=== PATIENT | female | born 1955 | race Caucasian/White ===

== ENCOUNTER 2019-07-28 13:00 | Outpatient (CLI) | payer MEDICARE, MEDICAID, SELFPAY ==
--- NOTE | 2019-07-28 13:16 | CT_ITS ---
WS: [id number] CT CHEST TECHNIQUE: Noncontrast CT of the chest with coronal and sagittal reformatted images. CLINICAL INFORMATION: COPD COMPARISON: None. DLP: 970.[address] scans at [facility] use at least one of these dose optimization techniques: automat ed exposure control; mA and/or kV adjustment per patient size (includes targeted exams where dose is matched to clinical indication); or iterative reconstruction. FINDINGS: Mild chronic emphysematous changes. No acute pulmonary infiltrates. Well-circumscribed left lower lob e pulmonary nodule with adjacent atelectasis. Pulmonary nodule measures 13 x 10 mm. Recommend further evaluation with PET/CT. Subsegmental atelectasis in the lingula and left lower lobe. Calcified granu milly right lower lobe. Aortic calcification. Coronary calcification. No mediastinal or hilar lymphadenopathy. Normal endobro nchial tree. Cholecystectomy clips. Tiny esophageal hiatal hernia. Adrenal glands are normal. No axil alayna lymphadenopathy. CT/CT chest wo con [id number] IMPRESSION: 1. Noncalcified pulmonary nodule in the left lower lobe medially measuring 13 x 10 mm. Recommend further evaluation with PET/CT. This is not amenable to CT-g uided biopsy. 2. Mild chronic emphysematous changes. No acute pulmonary infiltrates. 3. No mediastinal or hilar lymphadenopathy. 4. Prior cholecystectomy.
== END 2019-07-28 13:01 | disposition home or self-care (01) ==
LOC: RADWPI 13:05
DX: J43.9 Emphysema, unspecified (principal); R91.1 Solitary pulmonary nodule; Z90.49 Acquired absence of other specified parts of digestive tract
CPT/HCPCS: 71250

== ENCOUNTER → 2020-04-28 11:20 | Outpatient (BNVA) | payer MEDICARE, MEDICAID, SELFPAY | PROVIDERS: Visit Provider Family Medicine Adult Medicine | DX: E03.9 Hypothyroidism, unspecified (principal); E78.5 Hyperlipidemia, unspecified; E66.9 Obesity, unspecified; F32.9 Major depressive disorder, single episode, unspecified; M79.7 Fibromyalgia; M15.9 Polyosteoarthritis, unspecified; G89.4 Chronic pain syndrome | CPT/HCPCS: 80053; 80061; 83036; 84443; 85025 ==

== ENCOUNTER 2020-10-01 08:34 | Outpatient (CLI) | payer MEDICARE, MEDICAID, SELFPAY ==
--- NOTE | 2020-10-01 09:00 | CT_ITS ---
WS: [id number] CT CHEST WITH INTRAVENOUS CONTRAST HISTORY: 08/08/[address] with 13x10 mm nodule TECHNIQUE: Contiguous 5 mm axial imaging performed on the thorax. Coronal and sagittal reformats are submitted. All CT scans at [facility] use at least one of these dose optimization techniq ues: automated exposure control; mA and/or kV adjustment per patient size (includes targeted exams wh ere dose is matched to clinical indication); or iterative reconstruction. CONTRAST: Omnipaque 300; 95 mL IV. DLP: 486.75 mGy-cm. COMPARISON: 07/28/2019 Lungs and central airway: Solid well-circumscribed nodule in the medial LEFT lower lobe has very mini rita increased in size now measuring 15 x 14 mm and extends over length of 15 mm. Prior measurements were 13 x 10 x 13 mm. Benign calcified granuloma posterior RIGHT lower lobe. No new or additional no dules. Chronic emphysema. Pleura: Normal. No pleural effusion. Heart and pericardium: Normal size heart with no pericardial effusion. Mediastinum and jamir: No mediastinum or hilar adenopathy. Vessels: Mild atherosclerosis aorta. Pulmonary artery size is very slightly enlarged. Chest wall and lower neck: Mild enlargement of the inferior RIGHT thyroid extends substernal. Upper abdomen: Prior cholecystectomy. Visualized liver demonstrates moderate hepatic steatosis. No ad renal mass. Normal size spleen. Small hiatal hernia. Osseous structures: No destructive process. CT/CT chest w con* [id number] IMPRESSION: 1. Very slight increase in size of the medial LEFT lower lobe pulmonary nodule since 07/28/2019. Nodule now measures 15 x 14 x 15 mm as compared to 13 x 10 x 1 3 mm. Due to the very minimal change in size this is probably benign. PET CT ev aluation would be helpful. Otherwise continued CT follow-up in 6-12 months is r ecommended. 2. Chronic emphysema. 3. Mild pulmonary hypertension. 4. Hepatic steatosis. 5. Small hiatal hernia. 6. Prior cholecystectomy.
[2020-10-01 09:32] LABS: Blood Urea Nitrogen 18 mg/dL (8-23); Glomerular Filtration Rate 72.2 mL/min (90-130)
[2020-10-01] MEDS: iohexol 300 mg/mL 100 mL Btl IV (09:47)
== END 2020-10-01 08:35 | disposition home or self-care (01) ==
LOC: RADWPI 08:39
PROVIDERS: PCP Family Medicine Adult Medicine; Visit Provider Family Medicine Adult Medicine
DX: R91.1 Solitary pulmonary nodule (principal); Z90.49 Acquired absence of other specified parts of digestive tract; K44.9 Diaphragmatic hernia without obstruction or gangrene; K76.0 Fatty (change of) liver, not elsewhere classified; I27.20 Pulmonary hypertension, unspecified; J43.9 Emphysema, unspecified
CPT/HCPCS: 71260; 82565; 84520; Q9967

== ENCOUNTER 2020-12-07 10:33 | Emergency (ER) | payer MEDICARE, MEDICAID, SELFPAY ==
[2020-12-07 10:52] VITALS: BP 150/94; PULSE 73; RESP 16; TEMP 36.8; O2SAT 97; BMI 35.4
--- NOTE | 2020-12-07 11:00 | ED_ITS ---
HPI - General Adult General: Chief complaint: General Medical Stated complaint: sore on lip Time Seen by Provider: 12/07/20 10:57 History of Present Illness: HPI narrative: Patient is a 65-year-old female comes to the ED with a skin lesion on face. Patient says about a week and a half ago she woke up and lesion was on right side of upper lip. She says it has not changed in size or looks since it first appeared. She says she has been picking at it a little bit and applying hydrogen peroxide on it as well. She says it has not bled or drained any pus. Associated symptoms: Deny chest pain, dyspnea, headache(s), nausea, rash, palpitations or vomiting Review of Systems Const: Denies: fever(s), chills or fatigue Eyes: Denies: change in vision or eye discomfort ENMT: Denies: throat pain, odynophagia, nasal discharge or nasal congestion Card: Denies: chest pain, palpitations, edema, swelling of feet/ankles, dyspnea on exertion or orthopnea Resp: Denies: dyspnea, productive cough or non-productive cough GI: Denies: abdominal pain, nausea, vomiting, diarrhea, constipation or hematochezia : Denies: flank pain, dysuria or hematuria Musc: Denies: neck pain, back pain or extremity swelling Skin/Breast: Reports: new lesions (Skin lesion on face); Denies: rash Neuro: Denies: headache(s), numbness in extremities or weakness in extremities PFSH ED PFSH: Medical History Chronic pain disorder COPD (chronic obstructive pulmonary disease) Decreased calculated glomerular filtration rate (GFR) Depression determined by examination Dyslipidemia Excessive daytime sleepiness Fibromyalgia GERD with apnea Hypothyroidism Lung nodule < 6cm on CT Migraine Obesity (BMI 35.0-39.9 without comorbidity) Osteoarthritis involving multiple joints on both sides of body Surgical History History of cholecystectomy History of tonsillectomy and adenoidectomy Family History Other CAD (coronary artery disease) Social History Smoking and tobacco status: current every day smoker cigarettes Packs smoked per day: 1 Physical Exam Const: COMMON NORMALS: no acute distress, patient oriented x3 and alert GENERAL APPEARANCE: cooperative and comfortable HENMT: COMMON NORMALS: normocephalic HEAD & SCALP: normocephalic MOUTH: Normal oral and palatal mucosa present THROAT: posterior oropharynx normal and uvula midline Neck/C-Spine: COMMON NORMALS: supple GENERAL: Yes normal visual inspection Resp: COMMON NORMALS: normal respiratory effort, No retractions, No use of accessory muscles and clear to auscultation bilaterally AUSCULTATION: clear to auscultation bilaterally Cardio: COMMON NORMALS: regular rate, regular rhythm, S1 normal heart sound present, S2 normal heart sound present, No gallops present (Cardio), No clicks present (Cardio), No murmurs present (Cardio) and Peripheral pulses 2+ throughout RATE: regular rate RHYTHM: regular rhythm HEART SOUNDS: S1 normal heart sound present and S2 normal heart sound present PERIPHERAL PULSES: Peripheral pulses 2+ throughout GI: COMMON NORMALS: Normal to inspection, nondistended, normoactive bowel sounds present, Soft to palpation, non-tender and no masses PALPATION: Yes Soft to palpation : COMMON NORMALS: Yes no CVA tenderness BLADDER/KIDNEY EXAM: Yes no CVA tenderness Back/Pelvis: COMMON NORMALS: no CVA tenderness Neuro: COMMON NORMALS: patient oriented x3 and moves all extremities SENSORIUM/ORIENTATION: Yes alert Skin: NARRATIVE SKIN EXAM: Face?right side of upper lip just inferior to right nare, patient has a circular raised lesion with rolled borders. The lesion has erythema and crusty appearance in the center. GENERAL SKIN EXAM: dry skin Course Vital Signs: Vital signs: Vital Signs Temperature 98.2 F 12/07/20 10:52 Pulse Rate 73 12/07/20 10:52 Respiratory Rate 16 12/07/20 10:52 Blood Pressure 150/94 12/07/20 10:52 Pulse Oximetry 97 12/07/20 10:52 MDM - General Adult MDM Narrative: Medical decision making narrative: pt has a lesion on face that is raised erythemic an circular with rolled borders. The middle of lesion has crusty appearance. I placed an order with case management for pt to be referred to animal humane agent supervisor for further eval of facial lesion. pt understood and agreed with plan. Discharge Plan Discharge Patient Disposition: Home Clinical Impression: Skin lesion Condition: Stable Prescriptions: New cephalexin 500 mg capsule 500 mg PO Q6H 7 Days Qty: 28 RF: 0 No Action sumatriptan succinate 25 mg tablet 25 mg PO Q2H MDD 8 doses PRN (Reason: migraine headache) 30 Days Qty: 14 RF: 1 cyclobenzaprine 10 mg tablet See Rx Instructions .ROUTE .COMPLEX Qty: 60 RF: 0 albuterol sulfate [Ventolin HFA] 90 mcg/actuation HFA aerosol inhaler 2 puff inhalation Q6H PRN (Reason: shortness of breath or wheezing) Qty: 8.5 RF: 3 bupropion HCl 150 mg tablet sustained-release 12 hr 150 mg PO BID Qty: 60 RF: 2 meloxicam 7.5 mg tablet 7.5 mg PO DAILY 30 Days Qty: 30 RF: 1 pantoprazole 40 mg tablet,delayed release (DR/EC) 40 mg PO DAILY Qty: 30 RF: 5 Discharge Orders: Discharge ED (Routine); Ordered 12/07/20 Ordered By: Paul Tovar Referrals: Israel Carter MD [Primary Care Provider] - Discharge Diet: Regular Discharge Activity: Resume usual activity Activity Restrictions/Additional Instructions: Follow-up with medical provider as directed. Case management should be contacting you in the next several days to set up an appoint with animal humane agent supervisor to further evaluate skin lesion on face. Take medications as prescribed. Return to the ER or your medical provider if condition worsens. Please read and understand discharge instructions. Thank you for choosing [facility] for your healthcare needs today. Please realize this is an emergency room and that we are providing you with a medical screening exam and this may not be complete and all inclusive of all the testing and or work up that you may need to determine your ailment or severity of your illness. It is very important that you follow up as instructed or that you return to the Emergency Department should you have concerns or if your condition changes or worsens in any way. Coding Level of Care Code ED Certified Nurse Operating Room for Bogdan Meredith Exam Comprehensive
--- NOTE | 2020-12-07 14:17 | DCPLANNER ---
digital project manager had message to schedule a follow up appointment for patient with dermatology for skin lesion. digital project manager called the dermatology clinic, spoke with Macie, gave clinic patients information. A follow up appointment is scheduled for Sunday, January 17, 2021 at 1:[address] Clrak. digital project manager called patient at phone number [phone], this number has been disconnected or is no longer in service. digital project manager mailed letter to patient with appointment information.
--- NOTE | 2021-01-19 12:24 | DCPLANNER ---
Patient had a follow up appointment scheduled for 01.17.[address] Clark - patient did attend appointment.
== END 2020-12-07 12:10 | disposition home or self-care (01) ==
LOC: ER 11:28
PROVIDERS: Emergency Provider Physician Assistant; PCP Family Medicine Adult Medicine
DX: L98.9 Disorder of the skin and subcutaneous tissue, unspecified (principal); J44.9 Chronic obstructive pulmonary disease, unspecified; E78.5 Hyperlipidemia, unspecified; E03.9 Hypothyroidism, unspecified; E66.9 Obesity, unspecified; Z68.35 Body mass index [BMI] 35.0-35.9, adult; F17.210 Nicotine dependence, cigarettes, uncomplicated
CPT/HCPCS: 99281

== ENCOUNTER → 2021-05-09 14:51 | Outpatient (BNVA) | payer MEDICARE, MEDICAID, SELFPAY | PROVIDERS: PCP Family Medicine Adult Medicine; Visit Provider Family Medicine Adult Medicine | DX: E03.9 Hypothyroidism, unspecified (principal); I10 Essential (primary) hypertension; R73.03 Prediabetes; J44.9 Chronic obstructive pulmonary disease, unspecified; G47.33 Obstructive sleep apnea (adult) (pediatric) | CPT/HCPCS: 80053; 83036; 84443; 85025 ==

== ENCOUNTER → 2021-09-29 09:30 | Outpatient (BNVA) | payer MEDICARE, MEDICAID, SELFPAY | PROVIDERS: PCP Family Medicine Adult Medicine; Visit Provider Family Medicine Adult Medicine | DX: E11.9 Type 2 diabetes mellitus without complications (principal); E66.9 Obesity, unspecified; I10 Essential (primary) hypertension; E03.9 Hypothyroidism, unspecified; R91.1 Solitary pulmonary nodule; M54.16 Radiculopathy, lumbar region; Z71.6 Tobacco abuse counseling; M79.7 Fibromyalgia; G89.4 Chronic pain syndrome; M54.9 Dorsalgia, unspecified | CPT/HCPCS: 80053; 83036; 84443 ==

== ENCOUNTER 2021-11-04 06:00 | Outpatient (RCR) | payer OTHER, MEDICAID, SELFPAY | END 2021-11-17 23:59 | disposition home or self-care (01) | LOC: SPT 06:00 | PROVIDERS: PCP Family Medicine Adult Medicine; Referring Provider Family Medicine Adult Medicine; Visit Provider Family Medicine Adult Medicine | DX: M54.16 Radiculopathy, lumbar region (principal) | CPT/HCPCS: 97161 ==

== ENCOUNTER 2021-12-02 11:16 | Emergency (ER) | payer MEDICARE, MEDICAID, SELFPAY ==
[2021-12-02 11:34] VITALS: BP 137/67; PULSE 82; RESP 16; TEMP 36.8; O2SAT 97
--- NOTE | 2021-12-02 12:43 | ED_ITS ---
HPI - General Adult General: Chief complaint: General Medical Stated complaint: lethargic Time Seen by Provider: 12/02/21 12:43 History of Present Illness: Ms. Garduno is a 66-year-old lady with history of hypertension, hyperlipidemia, COPD, BRY, CKD, diabetes who presents to the emergency department due to recurrent episodes of loss of consciousness. She reports onset of symptoms without specific known provoking factor approximately 3 months ago. Since that time she has had increasing frequency of what she describes falling asleep. These now occur 30-40 times per day at random times including 1 episode [address] that occurred yesterday. She denies preceding symptoms and simply loses consciousness. She does have a history of snoring however no pauses in respiration overnight, does not use CPAP. Denies associated chest pain or other systemic illness. 3 days ago she did start noticing a floater that moves around in the left eye. Overall course of symptoms has been worsening. No other specific changes in health, exacerbating, or alleviating factors identified. Onset (ago): month(s) Severity: moderate Review of Systems General: Reports: 10 or more systems reviewed and unremarkable except in HPI and below PFSH ED PFSH: Medical History Allergic rhinitis due to allergen Anxiety and depression Chronic pain disorder CKD (chronic kidney disease), stage II 05/09/2021 GFR 72 now x3 so new diagnosis CKD stage II COPD (chronic obstructive pulmonary disease) Depression determined by examination Dyslipidemia Encounter for smoking cessation counseling Excessive daytime sleepiness Fibromyalgia GERD with apnea Hypertension Diagnosed 05/09/2021 Started lisinopril 10 mg daily Hypothyroidism 05/09/2021 TSH 4.9 starting levothyroxine 25 daily Lumbar back pain with radiculopathy affecting left lower extremity Lung nodule < 6cm on CT Migraine Newly diagnosed diabetes 05/09/2021 hemoglobin A1c 7.1 starting Metformin 250 twice daily Obesity (BMI 35.0-39.9 without comorbidity) BRY and COPD overlap syndrome Osteoarthritis involving multiple joints on both sides of body Prediabetes Surgical History History of cholecystectomy History of tonsillectomy and adenoidectomy Family History Other CAD (coronary artery disease) Social History Smoking and tobacco status: current every day smoker cigarettes Packs smoked per day: 1 Alcohol intake: never Marital status: Current occupational status: disabled History of recent travel: No Physical Exam Const: COMMON NORMALS: patient oriented x3 and alert GENERAL APPEARANCE: cooperative and well developed HENMT: COMMON NORMALS: normocephalic and atraumatic HEAD & SCALP: normocephalic and atraumatic THROAT: posterior oropharynx normal Eye: COMMON NORMALS: conjunctivae normal CONJUNCTIVA: Yes conjunctivae normal SCLERA: sclerae normal Neck/C-Spine: COMMON NORMALS: supple GENERAL: Yes trachea midline Resp: COMMON NORMALS: normal respiratory effort and clear to auscultation bilaterally EFFORT & INSPECTION: Yes able to speak in complete sentences AUSCULTATION: clear to auscultation bilaterally Cardio: COMMON NORMALS: regular rate and regular rhythm RATE: regular rate RHYTHM: regular rhythm GI: COMMON NORMALS: Soft to palpation PALPATION: Yes Soft to palpation and No Tenderness to palpation present (GI) PERCUSSION: normal to percussion Extremity: GENERAL: Yes normal exam except as noted and No edema Neuro: COMMON NORMALS: patient oriented x3, CN's II-XII intact bilaterally, mo ves all extremities, no focal motor deficits and no sensory deficits noted SENSORIUM/ORIENTATION: Yes alert and No Orientation impaired Psych: COMMON NORMALS: mental status grossly normal and Normal thought process present THOUGHT PROCESS: Normal thought process present Course ED course: - Patient was seen and evaluated by me at bedside - Patient placed on cardiac monitors, IV access obtained - Initial evaluation notable for exam as above. No focal neurologic abnormity's appreciated. - Labs and xrays personally interpreted by me. EKG with nonspecific ST segment abnormalities. No STEMI. - Labs notable for no acute hematologic or metabolic abnormality to explain symptoms. Delta troponin is negative. No evidence of UTI. - Imaging notable for no lobar consolidation or pneumothorax. Lungs appear hyperinflated. Head CT negative. - Upon serial reexamination after treatment the patient was similar without recurrence episodes - Based on patient history, evaluation, and testing as interpreted the most likely cause of the patient's condition is recurrent syncope of unclear etiology. Given frequency and severity patient requires further inpatient investigation to - The results of ED evaluation were discussed with the patient including plan for admission due to requirement for level of care not available if discharged to prevent significant worsening/deterioration. - Admitting service was contacted and Dr Cleveland with the hospitalist service agreed to admit the patient - Unfortunately the patient elected to leave AGAINST MEDICAL ADVICE prior to admission. Patient declined to remain in the emergency department to receive further instructions for after further discussion. Note: Click bubbles or prepopulated yip in note writing are used for assistance with data collection and billing and are inherently more limited than narrative and other text portions of this note. Please use narrative for additional clinical history and defer to narrative/free test for any case of contradictory information. If information appears in only free text or click bubble it should be considered present or absent as reported. Please contact note director underwriter sales for clarifications of clinical information or contradictory information. MDM is a brief summary, contradictory or erroneous seeming information should be clarified and full note should be reviewed. Vital Signs: Vital signs: Vital Signs Temperature 98.2 F 12/02/21 11:34 Pulse Rate 82 12/02/21 11:34 Respiratory Rate 16 12/02/21 11:34 Blood Pressure 137/67 12/02/21 11:34 Pulse Oximetry 97 12/02/21 11:34 MDM - General Adult Medical Decision Making 66-year-old lady presenting with recurrent episodes of syncope without prodrome . No focal neurodeficits on exam. No clear explanation of patient's symptoms identified on ED evaluation. Patient initially agreeable to be admitted however subsequently left against medical advice without further discussion. Based on my assessment and interactions with patient she has capacity to make healthcare decisions however ill-advised. Medical Records I reviewed the patient's medical records. Lab Data I reviewed the patient's lab results. : 12/02/21 13:18 12/02/21 13:18 Radiology Impressions Chest X-Ray 12/02/21 13:06 Impression: Atherosclerosis and hyperinflation. Head CT 12/02/21 13:06 IMPRESSION: Negative head CT. Laboratory Results WBC 7.5 10^3/uL (4.0-10.0) 12/02/21 13:18 RBC 4.63 10^6/uL (4.1-5.3) 12/02/21 13:18 Hgb 14.0 g/dL (11.5-15.3) 12/02/21 13:18 Hct 41.9 % (37.0-47.0) 12/02/21 13:18 MCV 90.5 fl (81-99) 12/02/21 13:18 MCH 30.2 pg (28.0-34.0) 12/02/21 13:18 MCHC 33.4 g/dL (30.0-36.0) 12/02/21 13:18 RDW 12.6 % (12.1-15.1) 12/02/21 13:18 Plt Count 275 10^3/cmm (130-400) 12/02/21 13:18 MPV 9.1 fL (7.4-10.4) 12/02/21 13:18 Neut % (Auto) 54.5 % 12/02/21 13:18 Lymph % (Auto) 30.9 % 12/02/21 13:18 [place] % (Auto) 8.7 % 12/02/21 13:18 Eos % (Auto) 4.9 % 12/02/21 13:18 Baso % (Auto) 0.3 % 12/02/21 13:18 Neut # (Auto) 4.09 10^3/uL (1.8-7.7) 12/02/21 13:18 Lymph # (Auto) 2.3 10^3/uL (0.8-4.8) 12/02/21 13:18 [place] # (Auto) 0.7 10^3/uL (0.2-0.9) 12/02/21 13:18 Eos # (Auto) 0.4 10^3/uL (0.0-0.8) 12/02/21 13:18 Baso # (Auto) 0.0 10^3/uL (0.0-0.1) 12/02/21 13:18 Nucleated RBC % (auto) 0 % 12/02/21 13:18 Nucleated RBCs # 0.0 /100WBC 12/02/21 13:18 Specimen Type Arterial 12/02/21 13:37 Sample Site Radial, right 12/02/21 13:37 ABG pH 7.38 (7.35-7.45) 12/02/21 13:37 ABG pCO2 45.0 mmHg (35-45) 12/02/21 13:37 ABG pO2 71.7 mmHg (80.0-100.0) L 12/02/21 13:37 ABG HCO3 26.6 mmol/L (22-26) H 12/02/21 13:37 ABG Base Excess 1.0 mmol/L (-2.0-2.0) 12/02/21 13:37 [place] Test Pos 12/02/21 13:37 Hematocrit 43.2 % (37-47) 12/02/21 13:37 O2 Delivery Device Room air 12/02/21 13:37 Heel Coverer Machine Operator ID Carlos 12/02/21 13:37 Sodium 135 mmol/L (136-145) L 12/02/21 13:18 Potassium 4.4 mmol/L (3.5-5.1) 12/02/21 13:18 Chloride 100 mmol/L (98-107) 12/02/21 13:18 Carbon Dioxide 27 mmol/L (22-29) 12/02/21 13:18 Anion Gap 12.4 (5-19) 12/02/21 13:18 BUN 21 mg/dL (8-23) 12/02/21 13:18 Creatinine 0.8 mg/dL (0.5-0.9) 12/02/21 13:18 GFR Calculation 72.0 mL/min (90-130) L 12/02/21 13:18 Glucose 116 mg/dL (65-115) H 12/02/21 13:18 Calculated Osmolality 284 mOsm/kg (285-295) L 12/02/21 13:18 Calcium 8.8 mg/dL (8.5-10.5) 12/02/21 13:18 Total Bilirubin 0.2 mg/dL (0.15-1.2) 12/02/21 13:18 AST 21 U/L (0-32) 12/02/21 13:18 ALT 32 U/L (0-33) 12/02/21 13:18 Alkaline Phosphatase 145 IU/L (35-105) H 12/02/21 13:18 Ammonia 22 umol/L (11-51) 12/02/21 13:18 Troponin T Baseline 12 ng/L (0-10) H 12/02/21 13:18 Troponin T 120 Minute 11.55 ng/L (0-10) H 12/02/21 15:17 Delta Troponin T -0.45 ABS# (0-10) L 12/02/21 15:17 Total Protein 6.5 g/dL (6.6-8.7) L 12/02/21 13:18 Albumin 3.9 g/dL (3.5-5.2) 12/02/21 13:18 Globulin 2.6 g/dL (1.3-4.6) 12/02/21 13:18 TSH 2.48 uIU/mL (0.27-4.20) 12/02/21 13:18 Urine Color Yellow (Yellow) 12/02/21 15:00 Urine Appearance Clear (CLEAR) 12/02/21 15:00 Urine pH 5 (5-7) 12/02/21 15:00 Ur Specific [place] 1.020 (1.005-1.030) 12/02/21 15:00 Urine Protein Neg (Negative) 12/02/21 15:00 Urine Glucose (UA) Norm (Normal) 12/02/21 15:00 Urine Ketones Negative (Negative) 12/02/21 15:00 Urine Blood Neg (Negative) 12/02/21 15:00 Urine Nitrate Negative (Negative) 12/02/21 15:00 Urine Bilirubin Neg (Negative) 12/02/21 15:00 Urine Urobilinogen Norm mg/dL (Negative) 12/02/21 15:00 Ur Leukocyte Esterase Negative (Negative) 12/02/21 15:00 Discharge Plan Discharge Patient Disposition: Left Against Medical Advice Clinical Impression: Recurrent syncope Condition: Stable Prescriptions: No Action fluticasone propionate 50 mcg/actuation spray,suspension 1 spray intranasal BID Qty: 16 2RF Rx Instructions: administer into each nostril loratadine 10 mg tablet 10 mg PO DAILY Qty: 30 1RF pantoprazole 40 mg tablet,delayed release (DR/EC) 40 mg PO DAILY Qty: 30 5RF sumatriptan succinate 25 mg tablet 25 mg PO Q2H MDD 8 doses PRN (Reason: migraine headache) 30 Days Qty: 14 0RF Rx Instructions: do not exceed 8 doses per 24 hrs albuterol sulfate [Ventolin HFA] 90 mcg/actuation HFA aerosol inhaler 2 puff inhalation Q6H PRN (Reason: shortness of breath or wheezing) Qty: 8.5 3RF cyclobenzaprine 10 mg tablet 10 mg PO Q8H PRN (Reason: muscle spasm) 30 Days Qty: 90 3RF metformin 500 mg tablet 250 mg PO BID 0RF levothyroxine 25 mcg tablet 25 mcg PO DAILY 0RF Rx Instructions: TAKE 1 TABLET BY MOUTH DAILY FOR LOW THYROID FUNCTION meloxicam 7.5 mg tablet 7.5 mg PO DAILY 0RF lisinopril 10 mg tablet 10 mg PO DAILY 0RF bupropion HCl 150 mg tablet sustained-release 12 hr 150 mg PO BID 0RF Referrals: Israel Carter MD [Primary Care Provider] - Coding Level of Care Code ED Stallion Keeper for Chg Fwd Exam Comprehensive
--- NOTE | 2021-12-02 13:06 | ECG_ITS ---
[facility] Test Date: 2021-12-02 Pat Name: Mara Garduno Department: Room: Gender: Female Pull Up Hand: : 1955 Requested By: Willie Pruett Order Number: [id number] Eleno MD: Keyshawn Simon M.D. Measurements Intervals [place] Rate: 68 P: 58 FL: 183 QRS: 53 QRSD: 86 T: 60 QT: 397 QTc: 424 Interpretive Statements SINUS RHYTHM Compared to ECG 08/08/2015 18:19:47 No significant changes Electronically Signed On 12-02-2021 17:13:28 CDT by Keyshawn Simon M.D. [id number]
--- NOTE | 2021-12-02 13:06 | CT_ITS ---
WS: [id number] CT HEAD NONCONTRAST HISTORY: AMS, visual changes TECHNIQUE: Contiguous axial imaging performed through the brain in 2.5 mm imaging. Bone and soft tiss ue windows. Sagittal and coronal reformats reviewed. All CT scans at [facility] use at least one of these dose optimization techniques: automated exposure control; mA and/or kV adjustment per pa tient size (includes targeted exams where dose is matched to clinical indication); or iterative recon struction. DLP: 1033.68 mGy.cm COMPARISON: None available. No acute intracranial hemorrhage, midline shift or mass effect. No atrophy or prior infarcts or herniation. Ventricles: Normal size with no hydrocephalus. Paranasal sinuses: As visualized are clear. Mastoid air cells: Well pneumatized. Calvarium and scalp: Skull is intact with no soft tissue edema or swelling. CT/CT head wo con* [id number] IMPRESSION: Negative head CT.
--- NOTE | 2021-12-02 13:06 | XR_ITS ---
WS: [id number] Portable AP upright chest, 12/02/2021 Clinical Data: recurrent LOC Comparison: Portable chest, 08/08/2015. Findings: No nodules, masses or effusions are seen. The heart is normal. The pulmonary vascularity is not increased. No pneumonia or pneumothorax is seen. The diaphragms are flattened. The aortic arch s hows tortuosity. XR/XR chest 1V portable [id number] Impression: Atherosclerosis and hyperinflation.
[2021-12-02 13:24] LABS: Basophils % 0.3 %; Eosinophils # 0.4 10^3/uL (0.0-0.8); Eosinophils % 4.9 %; Hematocrit 41.9 % (37.0-47.0); Lymphocytes # 2.3 10^3/uL (0.8-4.8); Lymphocytes % 30.9 %; Mean Corpuscular HGB Conc 33.4 g/dL (30.0-36.0); Mean Corpuscular Hemoglobin 30.2 pg (28.0-34.0); Mean Corpuscular Volume 90.5 fl (81-99); Mean Platelet Volume 9.1 fL (7.4-10.4); Monocytes # 0.7 10^3/uL (0.2-0.9); Monocytes % 8.7 %; Neutrophils # 4.09 10^3/uL (1.8-7.7); Neutrophils % 54.5 %; Nucleated Red Blood Cells % 0 %; Platelet Count 275 10^3/cmm (130-400); Red Blood Count 4.63 10^6/uL (4.1-5.3); Red Cell Distribution Width 12.6 % (12.1-15.1); White Blood Count 7.5 10^3/uL (4.0-10.0)
[2021-12-02 13:41] LABS: ABG PH Result 7.38 (7.35-7.45); Arterial Blood Gas Hematocrit 43.2 % (37-47); Blood Gas Allen Test Pos; Blood Gas Sample Site Radial, right; Blood Gas Sample Type Arterial; HCO3 ABG 26.6 mmol/L (22-26); Oxygen Device ROOM AIR; PO2 ABG 71.7 mmHg (80.0-100.0)
[2021-12-02 13:44] LABS: Ammonia 22 umol/L (11-51)
[2021-12-02 13:48] LABS: Troponin(5th) Baseline 12 ng/L (0-10)
[2021-12-02 13:54] LABS: Alanine Aminotransferase 32 U/L (0-33); Albumin Level 3.9 g/dL (3.5-5.2); Alkaline Phosphatase 145 IU/L (35-105); Anion Gap 12.4 (5-19); Aspartate Amino Transferase 21 U/L (0-32); Blood Urea Nitrogen 21 mg/dL (8-23); Calcium 8.8 mg/dL (8.5-10.5); Carbon Dioxide 27 mmol/L (22-29); Chloride 100 mmol/L (98-107); Globulin 2.6 g/dL (1.3-4.6); Glucose 116 mg/dL (65-115); Osmolality Calculated 284 mOsm/kg (285-295); Potassium 4.4 mmol/L (3.5-5.1); Sodium 135 mmol/L (136-145); Thyroid Stimulating Hormone 2.48 uIU/mL (0.27-4.20); Total Bilirubin 0.2 mg/dL (0.15-1.2); Total Protein 6.5 g/dL (6.6-8.7)
--- NOTE | 2021-12-02 15:06 | ECG_ITS ---
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 Measurements Intervals Vandiver Rate: 72 P: 60 AL: 172 QRS: 47 QRSD: 90 T: 40 QT: 390 QTc: 428 Interpretive Statements SINUS RHYTHM WITH SINUS ARRHYTHMIA Compared to ECG 12/02/2021 13:44:21 No significant changes Electronically Signed On 12-02-2021 17:20:01 CDT by Keyshawn Simon M.D. [email or web address] medical [id number]
[2021-12-02 15:10] LABS: Add Urine Microscopic? NO; Charge for UA Resulting for Rev
[2021-12-02 15:11] LABS: Urine Appearance Clear (CLEAR); Urine Color Yellow (Yellow); pH Urine 5 (5-7)
[2021-12-02 15:12] LABS: Bilirubin Urine Neg (Negative); Blood Urine Neg (Negative); Glucose Urine UA Norm (Normal); Ketones Urine Negative (Negative); Leukocyte Esterase Urine Negative (Negative); Nitrate Urine Negative (Negative); Protein Urine Neg (Negative); Urobilinogen Urine Norm (Negative)
[2021-12-02 16:03] LABS: Troponin 5 2HR 11.55 ng/L (0-10)
[2021-12-02 16:04] LABS: Troponin 5 2HR Delta -0.45 ABS# (0-10)
--- NOTE | 2021-12-02 19:01 | PM.HP ---
Providers/Chief Complaint Primary Care Provider: Israel Carter MD Chief Complaint: lethargic History of Present Illness Mara Garduno is a 66 year old female Medications/Allergies Home Medications Medication Instructions Recorded Confirmed Last Taken Type albuterol sulfate 90 mcg/actuation 2 puff INHALATION Q6H PRN #8.5 g 08/17/21 12/02/21 Unknown Rx aerosol inhaler (Ventolin HFA) pantoprazole 40 mg tablet,delayed 40 mg PO DAILY #30 tab 08/17/21 12/02/21 12/01/21 Rx release sumatriptan succinate 25 mg tablet 25 mg PO Q2H PRN 30 Days #14 tab 08/17/21 12/02/21 Unknown Rx MDD 8 doses fluticasone propionate 50 1 spray INTRANASAL BID #16 g 10/28/21 12/02/21 Unknown Rx mcg/actuation nasal spray,suspension loratadine 10 mg tablet 10 mg PO DAILY #30 tab 10/28/21 12/02/21 12/01/21 Rx cyclobenzaprine 10 mg tablet 10 mg PO Q8H PRN 30 Days #90 tab 11/17/21 12/02/21 Unknown Rx bupropion HCl 150 mg tablet,12 hr 150 mg PO BID 12/02/21 12/02/21 12/01/21 History sustained-release levothyroxine 25 mcg tablet 25 mcg PO DAILY 12/02/21 12/02/21 12/01/21 History lisinopril 10 mg tablet 10 mg PO DAILY 12/02/21 12/02/21 12/01/21 History meloxicam 7.5 mg tablet 7.5 mg PO DAILY 12/02/21 12/02/21 12/01/21 History metformin 500 mg tablet 250 mg PO BID 12/02/21 12/02/21 12/01/21 History Allergies Allergy/AdvReac Type Severity Reaction Status Date / Time No Known Allergies Allergy Verified 10/28/21 07:33 PFSH Acute PFSH: Medical History Allergic rhinitis due to allergen Anxiety and depression Chronic pain disorder CKD (chronic kidney disease), stage II 05/09/2021 GFR 72 now x3 so new diagnosis CKD stage II COPD (chronic obstructive pulmonary disease) Depression determined by examination Dyslipidemia Encounter for smoking cessation counseling Excessive daytime sleepiness Fibromyalgia GERD with apnea Hypertension Diagnosed 05/09/2021 Started lisinopril 10 mg daily Hypothyroidism 05/09/2021 TSH 4.9 starting levothyroxine 25 daily Lumbar back pain with radiculopathy affecting left lower extremity Lung nodule < 6cm on CT Migraine Newly diagnosed diabetes 05/09/2021 hemoglobin A1c 7.1 starting Metformin 250 twice daily Obesity (BMI 35.0-39.9 without comorbidity) BRY and COPD overlap syndrome Osteoarthritis involving multiple joints on both sides of body Prediabetes Surgical History History of cholecystectomy History of tonsillectomy and adenoidectomy Family History Other CAD (coronary artery disease) Social History Smoking and tobacco status: current every day smoker cigarettes Packs smoked per day: 1 Alcohol intake: never Marital status: Current occupational status: disabled History of recent travel: No Vitals/I&O/Wt Last Vital Signs Temp 98.2 F 12/02/21 11:34 Pulse 82 12/02/21 11:34 Resp 16 12/02/21 11:34 BP 137/67 12/02/21 11:34 Pulse Ox 97 12/02/21 11:34 Weight last 48 hrs Weight 96.162 kg Data : 12/02/21 13:18 12/02/21 13:18 A&P Assessment and plan Plan Pre syncope Check echo CTA head and neck b12 tsh orthostatsis Physical theraphy eval Full code cardiac diet dvt ppx: lovenox Attestations Medical Necessity Statement*: Dc with in 48 hrs needs workup for pre syncope Time Spent in Patient Care: 35mins Coding Level of Care Code Acute Child Care Counselor for Chg Viri
== END 2021-12-02 17:45 | disposition left against medical advice (07) ==
PROVIDERS: Emergency Provider Emergency Medicine; PCP Family Medicine Adult Medicine
DX: R55 Syncope and collapse (principal); Z53.21 Procedure and treatment not carried out due to patient leaving prior to being seen by health care provider; Z79.84 Long term (current) use of oral hypoglycemic drugs; I12.9 Hypertensive chronic kidney disease with stage 1 through stage 4 chronic kidney disease, or unspecified chronic kidney disease; E11.22 Type 2 diabetes mellitus with diabetic chronic kidney disease; N18.2 Chronic kidney disease, stage 2 (mild); J44.9 Chronic obstructive pulmonary disease, unspecified; E78.5 Hyperlipidemia, unspecified; F17.210 Nicotine dependence, cigarettes, uncomplicated
CPT/HCPCS: 36415; 36600; 70450; 71045; 80053; 81003; 82140; 82803; 84443; 84484; 85025; 93005; 99285

== ENCOUNTER → 2022-04-26 13:12 | Outpatient (BNVA) | payer MEDICARE, MEDICAID, SELFPAY | PROVIDERS: PCP Family Medicine Adult Medicine; Visit Provider Internal Medicine | DX: Z01.818 Encounter for other preprocedural examination (principal); R07.9 Chest pain, unspecified; R06.02 Shortness of breath; I10 Essential (primary) hypertension; F17.200 Nicotine dependence, unspecified, uncomplicated | CPT/HCPCS: 93005; 99204 ==

== ENCOUNTER 2022-05-22 13:27 | Outpatient (CLI) | payer MEDICARE, MEDICAID, SELFPAY ==
--- NOTE | 2022-05-22 13:45 | USCV_ITS ---
Mara Garduno Age: 67 Gender: F : 1955 Exam Date: 05/22/2022 13:57 Ordering Phys: Fox Hall M.D ([email or web address]) Technologist: YUKI Exam Location[place] [facility] [place] Indication: SHORTNESS OF BREATH BP: 128 / 84 HR: 81 Rhythm: Sinus Technical Quality: Poor secondary to COPD MEASUREMENTS (Male / Female) Normal Values 2D ECHO LVOT Diameter 2.0 cm LV Ejection Fraction MOD 2C 66.7 % LV Ejection Fraction 2C AL 69.3 % LA Diameter 2.6 cm LA Width 2.9 cm LA Height 3.9 cm RA Width 3.5 cm RA Height 4.1 cm Aorta at Sinotubular Diameter 2.9 cm IVC Diameter 1.4 cm M-MODE Aortic Annulus Diameter 3.1 cm LA Ao Ratio MM 0.8 MV E Point Septal Separation 0.5 cm DOPPLER AV Peak Velocity 166.0 cm/s LVOT Peak Velocity 161.0 cm/s AV Area Cont Eq vti 3.5 cm squared AV Area Cont Eq pk 3.1 cm squared MV Peak Velocity 111.0 cm/s MV Area PHT 3.5 cm squared Mitral E to A Ratio 0.7 MV E' Velocity 44.5 cm/s Mitral E to MV E' Ratio 11.6 Mitral E to LV E' Lateral Ratio 12.3 Mitral E to LV E' Septal Ratio 11.1 TR Peak Velocity 243.8 cm/s TR Peak Gradient 23.8 mmHg TR Mean Velocity 219.2 cm/s TR Mean Gradient 19.5 mmHg TR Velocity Time Integral 78.5 cm TV Peak E Velocity 56.0 cm/s Right Atrial Pressure 3.0 mmHg Pulmonary Artery Systolic Pressu 26.8 mmHg PV Peak Velocity 101.0 cm/s RV Acceleration Time 0.1 s RV Ejection Time 0.3 s RV AcT/ET 0.5 FINDINGS Left Ventricle Technically limited quality echocardiogram because of poor ultrasonic windows. LV systolic function is normal with EF of 60-65%. No regional wall motion abnormalities are seen. Grade 1 diastolic dysfunction Right Ventricle Normal in size and function Right Atrium Normal in size Left Atrium Normal in size Mitral Valve Grossly normal. Mild mitral regurgitation. Aortic Valve Grossly normal. No significant stenosis or regurgitation seen. Tricuspid Valve Trace tricuspid regurgitation. Insufficient TR jet to calculate RVSP Pulmonic Valve Not well-visualized Pericardium Normal Aorta Normal in size IVC Appears to be normal CONCLUSIONS Technically limited quality echocardiogram because of poor ultrasonic windows. LV systolic function is normal with EF of 60 to 65%. Grade 1 diastolic dysfunction. Mild mitral regurgitation Trace tricuspid regurgitation. Compared to prior echocardiogram from 2018, no significant changes are seen Fox Hall MD (Electronically Signed) Final Date: 24 May 2022 11:33 S
== END 2022-05-22 13:28 | disposition home or self-care (01) ==
LOC: RAD 13:30
PROVIDERS: PCP Family Medicine Adult Medicine; Visit Provider Internal Medicine
DX: R06.02 Shortness of breath (principal); I08.1 Rheumatic disorders of both mitral and tricuspid valves
CPT/HCPCS: 93306

== ENCOUNTER 2022-06-09 08:37 | Outpatient (CLI) | payer MEDICARE, MEDICAID, SELFPAY ==
[2022-06-09 09:10] VITALS: BMI 37.2
--- NOTE | 2022-06-09 09:30 | NMCV_ITS ---
NM rommel perf SPECT r/s* [id number] Mara Garduno Age: 67 Gender: F : 1955 Exam Date: 06/09/2022 09:50 Ordering Phys: Fox Hall M.D ([email or web address]) Technologist: CHAYA Perez Exam Location: [facility] Indications: CHEST PAIN STRESS TEST [facility] IMAGE PROTOCOL Rest/Stress 1 Lexiscan Day Radiopharmaceutical Dose (mCi) Administration Site Administered by Rest: Tc-99m 10.6 IV CHAYA Timmons Sestamibi Stress:Tc-99m 32.4 IV CHAYA Timmons Sestamibi Rest: 09-Jun-2022 60 Discovery 630 Stress: 09-Jun-2022 30 Discovery 630 0.4mg Lexiscan. Images obtained in supine and prone position. SPECT RESULTS Technical Quality: Excellent Raw Data Analysis: Normal Image Corrections: No attenuation or motion correction applied Summed Stress Score: 0 Summed Rest Score: 0 Summed Difference Score: 0 PERFUSION FINDINGS SPECT images demonstrate homogeneous tracer distribution throughout the myocardium. FUNCTIONAL RESULTS (calculated via Gated SPECT) Stress Image LV EF (%): 81 Stress EDV (mL):42 TID: 0.92 Stress ESV (mL):8 FUNCTIONAL FINDINGS: There is normal left ventricular systolic function. IMPRESSIONS 1. Normal myocardial imaging with no evidence of ischemia 2. LV systolic function is normal Fox Hall MD (Electronically Signed) Final Date: 09 June 2022 13:34 S
--- NOTE | 2022-06-09 09:30 | ECG_ITS ---
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 Interpretive Statements NAME OF STUDY: LEXISCAN SESTAMIBI STRESS TEST INDICATION: [Chest Pain, ] Procedure: At the baseline, the blood pressure was 106/84 mmHg with a heart rate of 75 bpm. The electrocardiogram showed normal sinus rhythm, normal axis with normal ST and T's. The Lexiscan was infused over a period of 20 seconds. A total of 0.4 mg of Lexiscan was infused. The stress phase was continued for a total of 5 minutes. Heart rate was at the end of stress phase was 84 bpm and a blood pressure of 117/81mmHg. The EKG at the peak infusion revealed normal sinus rhythm with no significant ST-T wave changes. Sestamibi was injected 20 seconds after the Lexiscan infusion. Blood pressure at the end of recovery phase was 96/73mmHg with a heart rate of 82 bpm. Conclusion: 1. Normal EKG response to Lexiscan infusion 2. No Lexiscan induced chest pain or cardiac arrhythmia. 3. Normal blood pressure and heart rate response. 4. Sestamibi/sestamibi perfusion scan pending; see separate report. Electronically Signed On 06-18-2022 20:14:36 PASTRY COOK APPRENTICE by Fox Hall M.D. [id number]
[2022-06-09] MEDS: regadenoson 0.4 Mg/5 ml Syringe IVP (10:25)
[2022-06-09 10:47] VITALS: BP 96/73; PULSE 84
== END 2022-06-09 08:38 | disposition home or self-care (01) ==
LOC: CDL 08:39
PROVIDERS: Absent Provider Family Medicine; PCP Family Medicine Adult Medicine; Visit Provider Internal Medicine
DX: R07.9 Chest pain, unspecified (principal)
CPT/HCPCS: 36415; 78452; 93017; 96374; A9500; J2785

== ENCOUNTER → 2022-06-23 11:18 | Outpatient (BNVA) | payer MEDICARE, MEDICAID, SELFPAY | PROVIDERS: PCP Family Medicine Adult Medicine; Visit Provider Family Medicine Adult Medicine | DX: E11.69 Type 2 diabetes mellitus with other specified complication (principal); E66.9 Obesity, unspecified; I10 Essential (primary) hypertension; N18.2 Chronic kidney disease, stage 2 (mild); E78.5 Hyperlipidemia, unspecified; E03.9 Hypothyroidism, unspecified | CPT/HCPCS: 80048; 80061; 83036; 83721 ==

== ENCOUNTER 2022-08-14 04:51 | Outpatient (CLI) | payer MEDICARE, MEDICAID, SELFPAY | END 2022-08-14 04:52 | disposition home or self-care (01) | LOC: SLEEP 08-15 04:52 | PROVIDERS: PCP Family Medicine Adult Medicine; Visit Provider Internal Medicine | DX: R06.83 Snoring (principal); R53.83 Other fatigue; G47.33 Obstructive sleep apnea (adult) (pediatric) | CPT/HCPCS: 95810; 99214 ==

== ENCOUNTER → 2023-06-20 14:07 | Outpatient (BNVA) | payer MEDICARE, MEDICAID, SELFPAY | PROVIDERS: PCP Family Medicine Adult Medicine; Visit Provider Family Medicine Adult Medicine | DX: E11.69 Type 2 diabetes mellitus with other specified complication (principal); E66.9 Obesity, unspecified; I15.2 Hypertension secondary to endocrine disorders; E03.9 Hypothyroidism, unspecified; R63.4 Abnormal weight loss; F41.9 Anxiety disorder, unspecified; F32.A Depression, unspecified; N18.2 Chronic kidney disease, stage 2 (mild); G47.33 Obstructive sleep apnea (adult) (pediatric); F17.200 Nicotine dependence, unspecified, uncomplicated | CPT/HCPCS: 80053; 83036; 84443 ==

== ENCOUNTER → 2023-09-03 14:28 | Outpatient (BNVA) | payer MEDICARE, MEDICAID, SELFPAY | PROVIDERS: PCP Family Medicine Adult Medicine; Visit Provider Internal Medicine | DX: R07.9 Chest pain, unspecified (principal); I15.2 Hypertension secondary to endocrine disorders; F17.200 Nicotine dependence, unspecified, uncomplicated | CPT/HCPCS: 99213; 99214 ==

== ENCOUNTER → 2024-09-19 10:46 | Outpatient (BNVA) | payer MEDICARE, MEDICAID, SELFPAY | PROVIDERS: PCP Family Medicine Adult Medicine; Visit Provider Family Medicine | DX: E11.69 Type 2 diabetes mellitus with other specified complication (principal); E66.9 Obesity, unspecified; E78.5 Hyperlipidemia, unspecified; I15.2 Hypertension secondary to endocrine disorders; E03.9 Hypothyroidism, unspecified; K21.9 Gastro-esophageal reflux disease without esophagitis; R06.81 Apnea, not elsewhere classified | CPT/HCPCS: 80053; 80061; 82043; 82607; 83036; 84439; 84443; 85025 ==